=== PATIENT | male | born 1975 | race Caucasian/White ===

== ENCOUNTER 2018-12-27 10:33 | Emergency (ER) | payer BC ==
[~2018-12-27] VITALS: Wt 76.7 kg
[2018-12-27 10:42] VITALS: BP 133/86; PULSE 92; RESP 18
[2018-12-27] MEDS ORDERED: CEPHALEXIN 500 MG CAP PO ONE (11:30)
[2018-12-27] MEDS ORDERED: TRIMETHOPRIM/SULFAMETHOX (DS) TAB PO ONE (11:30)
[2018-12-27] MEDS ORDERED: LIDOCAINE 1% (MDV) 20 ML INJ SC ONE (11:30)
[2018-12-27] MEDS ORDERED: IBUPROFEN 600 MG TAB PO ONE (11:30)
[2018-12-27] MEDS ORDERED: SULF1TAB31 PO (12:03)
[2018-12-27] MEDS ORDERED: CEPH-443 PO (12:03)
[2018-12-27] MEDS ORDERED: ACET1TAB40 PO (12:04)
--- NOTE | 2018-12-27 12:07 | ERD ---
ER Documentation Chief Complaint Chief Complaint TESTICULAR SWELLING SINCE FRIDAY HPI 43-year-old male presents with pain swelling redness in the right groin area for last 2 days. Small amount of discharge. No history of fevers, vomiting, shortness breath or chest pain. No pain or swelling in the testicles. No d ysuria. ROS All systems reviewed and are negative except as per history of present illness. Medications Home Meds Active Scripts Acetaminophen with Codeine (Acetaminophen-Cod #3 Tablet) 1 Each Tablet, 1 TAB PO Q6H PRN for PAIN, #7 TAB Prov:GHANSHYAM KELLY MD 12/27/18 Cephalexin* (Keflex*) 500 Mg Capsule, 500 MG PO QID for 7 Days, CAP Prov:GHANSHYAM KELLY MD 12/27/18 Sulfamethoxazole/Trimethoprim* (Bactrim Ds* Tablet) 1 Each Tablet, 1 TAB PO BID for 7 Days, #14 TAB Prov:GHANSHYAM KELLY MD 12/27/18 Allergies Allergies: Coded Allergies: No Known Allergy (Unverified , 09/06/13) PMhx/Soc Medical and Surgical Hx: pt denies Medical Hx, pt denies Surgical Hx Hx Alcohol Use: No Hx Substance Use: No Hx Tobacco Use: No Smoking Status: Never smoker FmHx Family History: No diabetes, No coronary disease, No other Physical Exam Vitals Vital Signs Date Temp Pulse Resp B/P (MAP) Pulse Ox O2 O2 Flow FiO2 Time Delivery Rate 12/27/18 98.1 92 18 133/86 99 10:42 (102) Physical Exam Const: No acute distress Head: Atraumatic Eyes: Normal Conjunctiva ENT: Normal External Ears, Nose and Mouth. Neck: Full range of motion. No meningismus. Resp: Clear to auscultation bilaterally Cardio: Regular rate and rhythm, no murmurs Abd: Soft, non tender, non distended. Normal bowel sounds Skin: No petechiae or rashes. Small draining area of induration and fluctuance and redness just the right of the scrotum in the perineal area. No significant induration Back: No midline or flank tenderness Ext: No cyanosis, or edema Neur: Awake and alert Psych: Normal Mood and Affect Results 24 hrs Current Medications Medications Dose Sig/Wiley Start Time Status Last (Trade) Ordered Route PRN Stop Time Admin Dose Reason Admin 1 tab ONCE ONCE 12/27/18 DC 12/27/18 Trimethoprim/ PO 11:30 11:32 12/27/18 11:31 Sulfamethoxaz ole (Bactrim (Ds)) Cephalexin 500 mg ONCE ONCE 12/27/18 DC 12/27/18 (Keflex) PO 11:30 11:32 12/27/18 11:31 Ibuprofen 600 mg ONCE ONCE 12/27/18 DC 12/27/18 (Motrin) PO 11:30 11:32 12/27/18 11:31 Lidocaine 20 ml ONCE ONCE 12/27/18 DC (Xylocaine SC 11:30 1% (Mdv) 20 12/27/18 11:31 ml) Procedures/MDM Patient presents with a small spontaneously draining abscess in the right groin area. There appears to be some residual fluctuance. Patient was given Bactrim and Keflex p.o. Procedure note-right groin area was prepped with Betadine. 2 cc lidocaine was used for local filtration. Incision was made with a #11 scalpel. Pus was expr essed. Loculations broken up with a probe. Wound was not packed due to the small size of abscess. Wound was dressed and patient tolerated procedure well. She will be treated with Bactrim and Keflex and Tylenol 3 and recommendations to return for worsening redness, fevers, new worsening symptoms. There is no signs of necrotizing fasciitis, sepsis, abdominal pain, additional complications. There is no signs of Simone's gangrene, testicular torsion, additional concerning signs or symptoms of emergent condition. The patient was stable with no new complaints during the ER course. Clinically, there is no current evidence to suggest meningitis, sepsis, acute abdomen, pneumonia, stroke, acute coronary syndrome, pulmonary embolism, aortic dissection or any other emergent condition appearing to require further evaluation or hospitalization. Patient counseled regarding my diagnostic impression and care plan. Prior to discharge all questions answered. Pt agrees with treatment plan and understands strict return precautions. Pt is instructed to follow up with primary care provider within 24- 48 hours. Precautionary instructions provided including instructions to return to the ER if not improving or for any worsening or changing symptoms or concerns. Departure Diagnosis: Primary Impression: Abscess Condition: Stable Patient Instructions: Abscess, Incision And Drainage Additional Instructions: Saulo romero para gavin dukes fiebre. GHANSHYAM KELLY MD Dec 27, 2018 12:06
== END 2018-12-27 12:23 | disposition home or self-care (01) ==
LOC: FTE 10:33
DX: L02.214 Cutaneous abscess of groin (principal)
CPT/HCPCS: 10060; Z7502; Z7610